=== PATIENT | female | born 1990 | race Caucasian/White ===

== ENCOUNTER → 2016-12-23 | Outpatient (CLI) | payer BC ==
--- NOTE | ~2016-12-23 | CT71 ---
[facility] A Service of [facility] & [facility] / [facility] RADIOLOGY TEXT RESULTS PATIENT: ARELY BERMAN [facility] [birth year] UNIT #: [id number] AGE: [address]: Lola Curry MD SEX: F ORDER DR: [id number] [facility] [address] [facility]. [place], [place] [address] [id number] O MR#: [id number] Acc #: [id number] NAME: ARELY BERMAN : 1990 SEX: F STUDY DATE/TIME: 12/23/2016 15:43 [facility] RO[facility]: STUDY DESCRIPTION: CT Head Wo Contrast Attending Physician: Lola Curry M.D. Referring Physician: Lola Curry M.D. Ordering Physician: Lola Curry M.D. Primary Care Physician: Lola Curry M.D. MEDICAL IMAGING REPORT This report is preliminary unless electronic signature is present EXAM CT scan of the head without contrast. INDICATION Headache, jaw pain and dizziness for 2 weeks. TECHNIQUE Unenhanced images were obtained through the brain. This CT exam was performed with one or more of the following radiation dose reduction techniques: automatic exposure control, adjustment of mA and/or kV according to patient size, and iterative reconstruction. FINDINGS The ventricles and subarachnoid spaces are normal. There are no masses or extraaxial fluid collections or hemorrhage. IMPRESSION Normal unenhanced head CT scan. Dictated by... Tony Eugene M.D. THIS IS AN ELECTRONICALLY VERIFIED REPORT Tony Eugene M.D. at 12/24/2016 6:47 PM KATIANA/trevin TD: 12/23/2016 19:58 JOB #: [id number] MEDICAL IMAGING REPORT Page 1 of 1 COPY
== END | disposition home or self-care (01) ==
LOC: CCAT 15:18
DX: G43.109 Migraine with aura, not intractable, without status migrainosus (principal)
CPT/HCPCS: 70450